=== PATIENT | female | born 1970 | race Caucasian/White ===

== ENCOUNTER 2016-11-28 13:05 | Emergency (ER) | payer OTHER ==
[~2016-11-28] VITALS: Ht 157.5 cm; Wt 62.2 kg
[~2016-11-28 13:05] MED LIST: CARAFATE100 MG/ML PO; PREDNISONE20 MG PO; PROAIR HFA8.5 GM IH; PROVENTIL,2.5 MG/3 M IH; RANITIDINE HCL150 M1 PO; TYLENOL SINUS1 EA16 PO; VENTOLIN HFA18 GM IH
[2016-11-28 14:29] LABS: MCH 30.3 PG (29.0-34.0); MCHC 32.6 G/DL (30.0-36.0); MCV 93.1 FL (83-99); MEAN PLAT.VOLUME 10.5 uM^3 (9.5-12.4); PLATELET COUNT 305 K/uL (156-360); RBC DIS.WIDTH-SD 44.6 % (39-53); RED BLOOD COUNT 4.62 M/uL (3.80-5.20); WHITE BLOOD COUNT 8.1 K/uL (4.1-10.2)
[2016-11-28 14:49] LABS: TROP-I INTERPRETATION NEGATIVE; TROPONIN-I < 0.01 ng/mL (0.0-0.30)
[2016-11-28 15:01] LABS: CHLORIDE 107 mEq/L (99-109); POTASSIUM 4.4 mEq/L (3.7-5.4); SODIUM 140 mEq/L (136-147)
[2016-11-28 15:02] LABS: GLUCOSE 80 mg/dL (70-99)
[2016-11-28 15:04] LABS: ANION GAP 8 MEQ/L (2-14)
[2016-11-28 15:06] LABS: GFR ESTIMATE (CALCULATED) > 59 mL/min/
[2016-11-28 15:07] LABS: UREA NITROGEN (BUN) 10 mg/dL (9-23)
[2016-11-28] MEDS ORDERED: MOTRIN600 MG PO (15:07)
[2016-11-28] MEDS ORDERED: TRAMADOL HCL50 MG PO (15:07)
[2016-11-28 16:17] VITALS: BP 109/55
== END 2016-11-28 16:21 | disposition home or self-care (01) ==
LOC: EME 13:05
DX: S29.011A Strain of muscle and tendon of front wall of thorax, initial encounter (principal); X50.0XXA Overexertion from strenuous movement or load, initial encounter; J44.9 Chronic obstructive pulmonary disease, unspecified; F17.200 Nicotine dependence, unspecified, uncomplicated
CPT/HCPCS: 71020; 80048; 84484; 85027; 93005; 99281; 99283

== ENCOUNTER 2017-02-26 13:40 | Emergency (ER) | payer OTHER ==
[~2017-02-26] VITALS: Ht 154.9 cm; Wt 62.6 kg
[~2017-02-26 13:40] MED LIST changes: +MOTRIN600 MG PO; +TRAMADOL HCL50 MG PO
[2017-02-26] MEDS ORDERED: NAPROSYN500 MG PO (16:42)
[2017-02-26 16:55] VITALS: BP 111/74
== END 2017-02-26 16:56 | disposition home or self-care (01) ==
LOC: EME 13:40
DX: S80.01XA Contusion of right knee, initial encounter (principal); W18.30XA Fall on same level, unspecified, initial encounter; Y93.01 Activity, walking, marching and hiking; J45.909 Unspecified asthma, uncomplicated; F17.200 Nicotine dependence, unspecified, uncomplicated
CPT/HCPCS: 73564; 99281; 99283